=== PATIENT | male | born 1955 | race Caucasian/White ===

== ENCOUNTER → 2017-09-09 | Outpatient (CLI) | payer BC ==
--- NOTE | 2017-09-09 11:42 | RAD ---
Exam: Right shoulder three views History: Chronic right shoulder pain Comparison: None Findings: Mild degenerative changes noted at the acromioclavicular joint. The glenohumeral joint is n ormal. No acute bony abnormality is seen on this exam. Impression: Mild degenerative change at the right acromioclavicular joint. Remainder of the right shoulder is rad iographically normal. Reported By:
== END ==
LOC: RAD 10:45
PROVIDERS: ATTEND Obstetrics & Gynecology Obstetrics
DX: S46.011A Strain of muscle(s) and tendon(s) of the rotator cuff of right shoulder, initial encounter (principal); X58.XXXA Exposure to other specified factors, initial encounter
CPT/HCPCS: 73030